=== PATIENT | male | born 1940 | race Caucasian/White ===

== ENCOUNTER → 2018-02-04 | Outpatient (CLI) | payer OTHER ==
[~2018-02-04] VITALS: Ht 172.7 cm; Wt 91.2 kg
[~2018-02-04] MED LIST: ADULT LOW DOSE81 MG PO; AMBEREN; APAP650 PO; B-12250 MCG PO; B-50 COMPLEX1 EAC1 PO; BACLOFEN 10MG T10 M1 PO; BACLOFEN 10MG T10 MG PO; CALCIUM; CARVEDILOL6.25 MG PO; CLONAZEPAM PO; COENZYME Q10100 M2 PO; COLACE100 MG PO; CRESTOR10 MG PO; CYCLOBENZAPRINE10 MG; CYCLOBENZAPRINE10 MG PO; DICLOFENAC SODI75 MG PO; FENTANYL PA12 MCG/H1 TP; FENTANYL PA12 MCG/HR TP; FENTANYL PA25 MCG/HR TP; FISH OIL 1,0001 EAC5 PO; FLOMAX0.4 MG PO; GLUCOSAMINE &1 EACH PO; GLYCOLAX POWDER17 G1 PO; HAIR, SKIN & N1 EAC1 PO; HYDROCODON-ACE1 EAC7 PO; HYDROCODONE-APA1 TA1 PO; LACTULOSE10 GM/152 PO; LIORESAL 10 MG10 MG PO; LIPITOR 20 MG T20 M1 PO; LYRICA 75 MG CA75 MG PO; MELOXICAM7.5 MG PO; MULTI VITAMIN1 EACH PO; MULTI-DAY VITA1 EACH PO; NEURONTIN 300300 M1 PO; OXYCODONE HCL5 M1 PO; PANTOPRAZOLE SO40 M1 PO; REQUIP 0.25 M0.25 MG PO; ROVIN-CF OF TA1 EACH PO; ROXICODONE5 M1 PO; ROXICODONE5 M2 PO; ROXICODONE5 MG PO; SIMVASTATIN40 MG PO; TOPROL XL25 MG PO; TYLENOL PM EX-1 EACH PO; VIACTIV SOFT C1 EACH PO; VIACTIV TABLET1 EAC2 PO; VISTARIL 25 MG25 M1 PO; VITAMIN B-12500 MC3 PO; VITAMIN B-12500 MCG PO; XARELTO10 MG PO
--- NOTE | ~2018-02-04 | HPC ---
[facility] [place] [address] PAIN MANAGEMENT CONSULTATION Name: ANJELICA LINDO [facility] #: [facility] [id number] Admission: 02/04/18 Attend Phys: Ramo Alvarado DO Discharge: Date of : 41 Report #: [id number] THIS REPORT FOR: //name// CC: Ramo Alvarez DATE OF SERVICE: 02/04/2018 CHIEF COMPLAINT: Left hip pain. HISTORY OF PRESENT ILLNESS: As you know, the patient is a very pleasant 77-year-old male who was followed by [facility] for an extended period of time for lumbar radiculopathy and right hip osteoarthritis pain. The patient has undergone total right hip arthroplasty with significant pain improvement on the right. Unfortunately, his left hip has begun to progressively worsen. He indicates pain with ambulating and pain with weightbearing, no pain is noted in the seated and lying position. His symptoms correlate to left hip with groin involvement. No radiation of symptoms in the dermatomal distribution. He returns today per the request of his primary care physician to undergo intra-articular left hip injection in hopes of improving pain. He does not have any formalized imaging of this left hip today. He denies injury or trauma to the left hip, but has noted exacerbation of symptoms since his right total hip arthroplasty. ALLERGIES: No known drug allergies. CURRENT MEDICATIONS: Aspirin, vitamin B complex, Coenzyme Q10, multivitamin, atorvastatin, calcium carbonate, cyanocobalamin, Tylenol Extra Strength. SOCIAL HISTORY: The patient denies tobacco, alcohol, IV or illicit drug use. He is unaccompanied today. IMAGING: No new imaging available. PQRS: The patient has osteoarthritis of the bilateral shoulders, bilateral elbows, bilateral hips, bilateral knees and lower back. No rheumatoid arthritis. He is placing pain intensity 6/10. He is not a fall risk, has not had a fall in the last 3 months. He is not on blood thinners. He is not treated for hypertension. He has been on opioids for an extended period of time, but is at a low risk. He his pain impact score 31/70 indicating moderate interference. PHYSICAL EXAMINATION: VITAL SIGNS: Blood pressure 151/71, pulse of 59, respiratory rate 14 and unlabored. The patient is 95% on room air. Height 5 feet 8 inches tall, weight [facility] [address] [address] PAIN MANAGEMENT CONSULTATION Name: ANJELICA LINDO Room #: REG [facility]#: [id number] Admission: 02/04/18 Attend Phys: Ramo Alvarado DO Discharge: Date of : 41 Report #: [id number] 201 pounds, BMI calculated at 30.6. GENERAL: Well-developed, well-nourished, well-hydrated 77-year-old male appearing stated age. Pain is rated today at approximately 6/10. HEENT: Normocephalic, atraumatic. Pupils equal, round, reactive to light. EXTREMITIES: Show no clubbing, no cyanosis, no edema. MUSCULOSKELETAL: Angelique's test positive left, negative right. There is limited range of motion of the left hip due to pain. Standing from seated position exacerbates symptoms. He is intact to light touch from L1 through S2 dermatomes. ASSESSMENT: 1. Left hip pain. 2. Left hip osteoarthritis. 3. Chronic intractable pain. PLAN: 1. The patient returns today in followup visit indicating improvement in his low back symptoms as well as right hip pain. Hip pain has been resolved with a total hip arthroplasty. The patient reports increasing left hip pain that has been present since his right hip was completed. I believe he is suffering from similar osteoarthritic changes that he had seen in his right hip, but has noted an exacerbation of symptoms due to weight distribution changes after he underwent his right total hip arthroplasty. There has been no new imaging of his left hip, but his symptoms do correlate with left hip pathology, worsening with standing and weightbearing as well as walking long distances, improves with sitting down and lying down. He also reports pain radiating to the groin and anterior thigh, but not in the dermatomal distribution. This correlates with left hip pathology, likely due to osteoarthritis. We discussed treatment options as following 2. We discussed physical therapy, stretching exercise, core strengthening and weight loss as treatment option. We discussed initiation of nonsteroidal anti-inflammatories to help with pain control. We discussed intraarticular hip injections and ultimately hip revision surgically. After reviewing risks and benefits of all proposed treatment options, the patient chose to begin with an intraarticular hip injection. We have advised the patient of the risks and benefits of intraarticular hip injections. These risks include but are not necessarily limited to bleeding, bruising, infection, worsening of pain, no relief of pain, also risk of temporary or permanent muscle weakness, temporary or permanent nerve damage, possible joint destruction and . The patient states he understood and wished to proceed. 3. No medication changes made at today's visit. The patient will continue current medical therapy as prior prescribed. [address] [address] PAIN MANAGEMENT CONSULTATION Name: ANJELICA LINDO Room #: REG [facility]#: [id number] Admission: 02/04/18 Attend Phys: Ramo Alvarado DO Discharge: Date of : 41 Report #: [id number] 4. We will see the patient back in followup visit in approximately one month. At that time, review the efficacy of today's left intraarticular hip injection and determine if next in the series might be necessary. PROCEDURE NOTE DESCRIPTION OF PROCEDURE: Left intra-articular hip injection under fluoroscopic guidance. After obtaining written consent, the patient was taken back to fluoroscopy suite, placed in a supine position. The image intensifier (C-ARM) was brought into position over the left hip and AP imaging was obtained. The area overlying the injection site was prepped in an aseptic fashion. A sterile marker was used to mattie the injection site and a 27-gauge 1-1/4 inch needle was then used to anesthetize skin and subcutaneous tissue with 3 mL of 1% lidocaine. A 22-gauge 3-1/2-inch spinal needle with bent tip was advanced towards the left hip under fluoroscopic guidance. The needle was advanced until reaching the proximal head of the left femur. The needle was retracted approximately 1 mm and aspiration noted to be negative for heme. After negative aspiration for heme, 0.5 mL of Omnipaque was injected demonstrating an excellent left hip arthrogram. After negative aspiration for heme, 4 mL of a solution containing 1 mL 40 mg per mL, 40 mg total triamcinolone and 3 mL of bupivacaine 0.5% was injected slowly. Needle retracted residential, flushed with 1 mL of 1% lidocaine and removed. Sterile bandage was placed over injection site. The patient was able to move all 4 extremities after procedure purposefully. The patient tolerated the procedure well, carefully escorted to recovery room in stable condition. No apparent complications. After meeting our discharge criteria, the patient discharged home. <ELECTRONICALLY SIGNED> By: Ramo Alvarado DO 02/05/18 0909 [id number] Ramo Alvarado DO /nt
[2018-02-04 10:57] VITALS: BP 115/71
== END ==
LOC: PAIN 07:11
DX: M16.12 Unilateral primary osteoarthritis, left hip (principal); G89.29 Other chronic pain; M54.16 Radiculopathy, lumbar region; M19.012 Primary osteoarthritis, left shoulder; M19.011 Primary osteoarthritis, right shoulder; M19.022 Primary osteoarthritis, left elbow; M19.021 Primary osteoarthritis, right elbow; M17.0 Bilateral primary osteoarthritis of knee; I12.9 Hypertensive chronic kidney disease with stage 1 through stage 4 chronic kidney disease, or unspecified chronic kidney disease; N18.9 Chronic kidney disease, unspecified; Z87.891 Personal history of nicotine dependence; Z98.890 Other specified postprocedural states; Z79.82 Long term (current) use of aspirin; Z79.899 Other long term (current) drug therapy; Z79.891 Long term (current) use of opiate analgesic; Z95.1 Presence of aortocoronary bypass graft

== ENCOUNTER → 2018-03-04 | Outpatient (CLI) | payer OTHER ==
[~2018-03-04] VITALS: Ht 172.7 cm; Wt 91.6 kg
--- NOTE | ~2018-03-04 | HPC ---
[facility] [address] [place] [address] PAIN MANAGEMENT CONSULTATION Name: ANJELICA LINDO Room #: REG Hanane MoralesVanessaJavierVanessa#: [id number] Admission: 03/04/18 Attend Phys: Ramo Alvarado DO Discharge: Date of : 41 Report #: [id number] THIS REPORT FOR: //name// CC: Ramo Drummond MD DATE OF SERVICE: 03/04/2018 REFERRING PHYSICIAN: William Drummond MD CHIEF COMPLAINT: Left hip pain. HISTORY OF PRESENT ILLNESS: As you know, the patient is a very pleasant 77-year-old male followed by [facility] for an extended period of time for lumbar radiculopathy and hip osteoarthritis. He has undergone total right hip arthroplasty with significant pain improvement on the right. Unfortunately, he continues to experience left hip pain for which he has undergone intra-articular hip injections with good efficacy. Most recent injection performed on 02/04/2018 provided near 100% improvement in overall pain. He has had a slow and progressive return of symptoms and he returns today to undergo next in the series of left intra-articular hip injections. The patient denies any new injury or trauma that may have led to symptom reoccurrence. The patient does relay information today that he is undergoing workup for potential prostate cancer. He has undergone biopsies of the prostate and is awaiting results. He is somewhat upset about this issue, but understands he must await the findings before moving forward with any treatment. He returns to undergo left intra-articular hip injection today. ALLERGIES: No known drug allergies. CURRENT MEDICATIONS: Aspirin, vitamin B complex, Coenzyme Q10, multivitamin, atorvastatin, calcium carbonate, cyanocobalamin, Tylenol Extra Strength. SOCIAL HISTORY: The patient denies tobacco, alcohol, IV or illicit drug use. He is accompanied by his who is present in room today. IMAGING: No new imaging available. PQRS: The patient has osteoarthritis in bilateral shoulders, bilateral elbows, bilateral hips, bilateral knees and low back. No rheumatoid arthritis. He is placing pain intensity up to 2/10. He is not a fall risk, has not had a fall in the last 3 months. He is not on blood thinners. He is not treated for hypertension. He has been on opioids for an extended period of time, but has an extremely low risk of opioid abuse. Pain impact score 31/70, moderate interference of daily activities secondary to pain. [address] [address] PAIN MANAGEMENT CONSULTATION Name: ANJELICA LINDO Reinaldo [facility] [id number] Admission: 03/04/18 Attend Phys: Ramo Alvarado DO Discharge: Date of : 41 Report #: [id number] PHYSICAL EXAMINATION: VITAL SIGNS: Blood pressure 119/68, pulse 84, respiratory rate 16 and unlabored. The patient is 96% on room air. Height 5 feet 8 inches tall, weight 202 pounds, BMI calculated 30.7. GENERAL: Well-developed, well-nourished, well-hydrated, 77-year-old male. He appears stated age, placing current pain score up to 2/10. HEENT: Normocephalic, atraumatic. Pupils equal, round, reactive to light. Speech remains fluent. EXTREMITIES: Show no clubbing, no cyanosis, no edema. MUSCULOSKELETAL: Angelique's test positive left, negative right. Limited range of motion of the left hip due to pain. Standing from seated position once again exacerbate symptoms. He has a mildly antalgic left gait. ASSESSMENT: 1. Left hip pain. 2. Left hip osteoarthritis. 3. Chronic intractable pain. PLAN: 1. The patient has returned today in followup visit to undergo next in the series of left intra-articular hip injections. He did very well with previous injection reporting near 100% improvement in overall pain. He returns today with pain level up to 2/10, requesting to undergo next in the series of left intra-articular hip injections. He has done well with previous injections. I recommend that he continue to use these for conservative treatment. If this is ineffective at providing long-term benefit, possible surgical evaluation might be necessary. The patient is amenable and does wish to undergo the procedure. He has been advised the risks and benefits, states he understood and wished to proceed. 2. No medication changes made at today's visit. The patient will continue current medical therapy as previously prescribed. 3. I had a long discussion today with the patient about recent prostate biopsies. I advised the patient to await the findings before becoming concerned about the potential diagnosis. Many times prostates are evaluated and the findings are benign. I recommend we await the findings before making any decision in treatment. The patient was advised that he can contact our clinic if he wishes to discuss this further. 4. We will see the patient back in followup visit on an as needed basis. He is planning to leave to winter in the [facility] area. We wish him a good trip, will be available to see him back when necessary. PROCEDURE NOTE DESCRIPTION OF PROCEDURE: Left intra-articular hip injection under fluoroscopic guidance. [facility] [address] [place] [address] PAIN MANAGEMENT CONSULTATION Name: ANJELICA LINDO Room #: REG LEONELA Flores#: [id number] Admission: 03/04/18 Attend Phys: Ramo Alvarado DO Discharge: Date of : 41 Report #: [id number] After obtaining written consent, the patient was taken back to fluoroscopy suite, placed in a supine position. The image intensifier (C-arm) was brought into position over the left hip and AP imaging was obtained. The area overlying the injection site was then prepped and draped in aseptic fashion. A sterile marker was used to mattie the injection site and a 27-gauge 1-1/4 inch needle was then used to anesthetize skin and subcutaneous tissue with 2 mL of 1% lidocaine. A 22-gauge 3-1/2 inch spinal needle with bent tip was advanced towards the left hip under fluoroscopic guidance. Needle was advanced until reaching the proximal head of the left femur. Needle was then retracted approximately 1 mm and aspiration noted to be negative for heme. After negative aspiration for heme, 0.5 mL of Omnipaque was injected demonstrating an excellent left hip arthrogram. After negative aspiration for heme, 4 mL of a solution containing 1 mL 40 mg per mL, 40 mg total triamcinolone, 3 mL bupivacaine 0.5% injected slowly. Needle retracted shelter, flushed with 1 mL of 1% lidocaine and removed. Sterile bandage was placed over injection site. The patient was able to move all 4 extremities after procedure purposefully. The patient tolerated the procedure well, carefully escorted to the recovery room in stable condition. No apparent complications. After meeting discharge criteria, the patient was discharged home. <ELECTRONICALLY SIGNED> By: Ramo Alvarado DO 03/05/18 0814 1304 1941 Ramo Alvarado DO /nt
[2018-03-04 10:07] VITALS: BP 119/68
== END | disposition home or self-care (01) ==
LOC: PAIN 08:41
DX: M16.0 Bilateral primary osteoarthritis of hip (principal); M17.0 Bilateral primary osteoarthritis of knee; M19.012 Primary osteoarthritis, left shoulder; M19.011 Primary osteoarthritis, right shoulder; M19.022 Primary osteoarthritis, left elbow; M19.021 Primary osteoarthritis, right elbow; G89.29 Other chronic pain; I10 Essential (primary) hypertension; N18.9 Chronic kidney disease, unspecified; Z79.82 Long term (current) use of aspirin; Z79.899 Other long term (current) drug therapy; Z79.891 Long term (current) use of opiate analgesic; Z87.891 Personal history of nicotine dependence; Z95.1 Presence of aortocoronary bypass graft

== ENCOUNTER → 2020-10-25 | Outpatient (CLI) | payer OTHER ==
[~2020-10-25] VITALS: Ht 172.7 cm; Wt 91.5 kg
[~2020-10-25] MED LIST changes: +NAPROSYN500 MG PO; +PROTONIX40 M2 PO
--- NOTE | ~2020-10-25 | HPC ---
[facility] [place] [address] PAIN MANAGEMENT CONSULTATION Name: ANJELICA LINDO Room #: REG [facility] HéctorVanessa#: [id number] Admission: 10/25/20 Attend Phys: Ramo Alvarado DO Discharge: Date of : 41 Report #: [id number] THIS REPORT FOR: cc: LARY LEE Physician not on staff Ramo Alvarado DO ~ cc: iWlliam Drummond MD DATE OF SERVICE: 10/25/2020 REFERRING PHYSICIAN: Dr. William Drummond. CHIEF COMPLAINT: Low back pain, left side only. HISTORY OF PRESENT ILLNESS: As you know, the patient is a very pleasant 80-year-old male who has been referred back to our clinic by his primary care physician to discuss treatment options for axial left-sided back pain. The patient states his pain has progressively worsened. He was last seen in consultation in our clinic on 03/04/2018 where he underwent a left intra-articular hip injection with improvement in symptoms. He continues to experience axial back pain on the left side directly over the facet joint at L4-L5 and L5-S1. He has trialled conservative treatment options, but has not noted much in the way of improvement. He discussed his case further with his primary care physician who referred the patient on to our clinic to discuss interventional treatment options. He has returned today in followup visit with pain level of 2/10, located in symptoms over the left low back. He is able to localize in symptoms with specific activities such as rotation and lateral flexion. He has denied any specific injury or trauma that may have led to his axial back pain issues. ALLERGIES: No known drug allergies. CURRENT MEDICATIONS: ____ 0.4 mg once a day, pantoprazole 40 mg per day, Tylenol Extra strength 1 tablet per day, cyanocobalamin 500 mcg per day, calcium carbonate 1 tablet per day, atorvastatin 20 mg per day, multivitamin one tablet per day, Coenzyme Q 100 mg once a day, vitamin B complex 1 tablet per day, aspirin 81 mg per day. SOCIAL HISTORY: The patient denies tobacco, alcohol or IV or illicit drug use. He is retired, retired years ago, accompanied by his , present in room today. IMAGING: No new imaging is available. PQRS: The patient has known arthritic changes of the bilateral shoulders, bilateral elbows, bilateral hips, bilateral knees and lumbar spine. No rheumatoid arthritis. He is placing current pain score of 0/10. He is not a [facility] [address] [address] PAIN MANAGEMENT CONSULTATION Name: ANJELICA LINDO Room #: REG [facility]#: [id number] Admission: 10/25/20 Attend Phys: Ramo Alvarado DO Discharge: Date of : 41 Report #: [id number] fall risk, has not had a fall in last 3 months. He is not on blood thinners nor treated for hypertension. He is on no opioid medications, has a low opioid addiction potential. Pain impact is 31/70, moderate interference of daily activities secondary to pain. PHYSICAL EXAMINATION: VITAL SIGNS: Blood pressure 122/70, pulse 58, respiratory rate 16 and unlabored. The patient is 98% on room air. Height 5 feet 8 inches tall, weight 201.8 pounds, BMI calculated 30.7. GENERAL: Well-developed, well-nourished, well-hydrated 80-year-old male appearing stated age, pain is rated today 2/10. HEENT: Normocephalic and atraumatic. Pupils are round and responsive. Speech is fluent. He is wearing a mask in compliance with COVID-19 regulations. EXTREMITIES: Show no clubbing, no cyanosis. No appreciable edema. MUSCULOSKELETAL: The patient has palpatory tenderness over the lower lumbar spine. No spinous process tenderness. All pain is located on the left side. There is no right-sided discomfort. Seated straight leg raising negative. Supine straight leg raising negative. Fabere's test is positive for left intrinsic hip pathology. Pain is elicited with standing from a seated position. Muscle bulk and tone is symmetrical in comparing lower extremities. He is intact to light touch from L1 through S2 dermatomes. Straight leg raising both in seated and supine position are negative. He is displaying equal and symmetrical deep tendon reflexes at patella and Achilles. Lumbar provocation testing is met with increasing axial back pain directly over the facet joints at L4-L5 and L5-S1 on the left. ASSESSMENT: 1. 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 2. Facet arthropathy, lumbar spine. 3. Lumbar degeneration. 4. Chronic left hip pain due to osteoarthritis. 5. Chronic intractable pain. PLAN: 1. The patient has returned today in followup visit with continued axial back pain located over the left lower lumbar area. He has negative findings for SI joint dysfunction, but has significant pain with propagating testing of the L4-L5 and L5-S1 facet joints on the left. He does have findings concerning of intrinsic hip pathology and I do feel that ultimately he would have to look towards a total hip arthroplasty, but at this point, his main pain generator appears to be related to the facet joints of the lower lumbar spine. We discussed with the patient the treatment options following was discussed with the patient today. We discussed physical therapy, stretching exercises and core strengthening as a treatment approach. We discussed medication management, adding a consistent [facility] [place] [address] PAIN MANAGEMENT CONSULTATION Name: ANJELICA LINDO Room #: REG LEONELA Flores#: [id number] Admission: 10/25/20 Attend Phys: Ramo Alvarado DO Discharge: Date of : 41 Report #: [id number] nonsteroidal anti-inflammatory to be taken on a b.i.d. basis. We discussed diagnostic intra-articular facet injections at L4-L5 and L5-S1 on the left. We also discussed medial branch nerve blocks, radiofrequency lesioning as a treatment course and ultimately we discussed surgical options with the patient. After reviewing the risks and benefits of all proposed treatment options, the patient chose to begin with medication management and to obtain any authorizations necessary for the patient to undergo a left L4-L5, L5-S1 diagnostic intra-articular facet injections. The patient will be started on naproxen sodium 500 mg dose 1 tablet p.o. b.i.d. given the patient #60 tablets to be taken with meals. He will watch for side effects of dyspepsia, worsening of blood pressure, lower extremity edema. If he notes any of those side effects, he is to discontinue the medication immediately. The prescription was sent via [facility] local pharmacy with 2 refills essentially 3 months' worth of medication. 2. We will begin process of authorization for the patient to undergo diagnostic left L4-L5, L5-S1 intraarticular facet injections. We are hopeful that we can have those authorization was done in the next 4-7 days. We will have the patient tentatively establish an appointment for next week to undergo the procedure. 3. We wish to thank the referring physician, Dr. William Drummond for the re-referral of the patient to our clinic. We will keep you apprised of response to treatment. Again, we wish to thank you for the opportunity to see the patient in consultation. By: 0700 [id number] Ramo Alvarado DO /nt
[2020-10-25 09:34] VITALS: BP 122/70
--- NOTE | 2020-10-25 09:54 | NUR ---
Pain Clinic Assessment: 1. History of Osteoarthritis: Left Lower Extremity Left Upper Extremity Right Lower Extremity Right Upper Extremity History of Rheumatoid Arthritis: Not Applicable 2. Height: 5 ft. 8 in. 172.7 cm. Weight: 201.8 lb. oz. 91.536 kg. Patient's BMI: 30.7 3. Vital Signs: BP: 122/70 Pulse: 58 Resp: 16 Temp: 02 Sat: 98 ECG Mon: 4. Pain Intensity: 2 5. Fall Risk: Dizziness: N Needs help standing or walking: N Fallen in the last 3 months: N Fall risk comments: 6. Patient on Blood Thinner: None 7. History of Hypertension: N 8. Opioid Therapy greater than 6 weeks: Y Opiate Contract Signed: 10/26/15 9. Risk Assessment Tool Provided: 0 LOW RISK 10. Functional Assessment Tool: 31 11. Recreational Drug Use: Never Drug Type: Tobacco Use: Former Smoker Tobacco Type: Amount or Packs/day: How Many Years: Alcohol Use: No Frequency: Quant:
== END ==
LOC: PAIN 07:06
PROVIDERS: ATTEND Anesthesiology Pain Medicine
DX: M47.27 Other spondylosis with radiculopathy, lumbosacral region (principal); M51.36 Other intervertebral disc degeneration, lumbar region; M25.552 Pain in left hip; G89.4 Chronic pain syndrome; Z79.891 Long term (current) use of opiate analgesic; Z79.899 Other long term (current) drug therapy

== ENCOUNTER → 2021-02-28 | Outpatient (CLI) | payer OTHER ==
[~2021-02-28] VITALS: Ht 170.2 cm; Wt 91.2 kg
[2021-02-28 13:42] VITALS: BP 134/68
--- NOTE | 2021-02-28 13:48 | NUR ---
Pain Clinic Assessment: 1. History of Osteoarthritis: Left Lower Extremity Left Upper Extremity Right Lower Extremity Right Upper Extremity History of Rheumatoid Arthritis: Not Applicable 2. Height: 5 ft. 7 in. 170.2 cm. Weight: 201.0 lb. oz. 91.173 kg. Patient's BMI: 31.5 3. Vital Signs: BP: 134/68 Pulse: 68 Resp: 16 Temp: 02 Sat: 94 ECG Mon: 4. Pain Intensity: 6 5. Fall Risk: Dizziness: N Needs help standing or walking: N Fallen in the last 3 months: N Fall risk comments: 6. Patient on Blood Thinner: None 7. History of Hypertension: N 8. Opioid Therapy greater than 6 weeks: Y Opiate Contract Signed: 10/26/15 9. Risk Assessment Tool Provided: 0 LOW RISK 10. Functional Assessment Tool: 11. Recreational Drug Use: Never Drug Type: Tobacco Use: Former Smoker Tobacco Type: Amount or Packs/day: How Many Years: Alcohol Use: No Frequency: Quant:
--- NOTE | 2021-03-07 08:44 | HPC ---
[facility] [place] [address] PAIN MANAGEMENT CONSULTATION Name: ANJELICA LINDO Room #: REG [facility] [id number] Admission: 02/28/21 Attend Phys: Ramo Alvarado DO Discharge: Date of : 42 Report #: [id number] THIS REPORT FOR: cc: LARY LEE Physician not on staff Ramo Alvarado DO ~ DATE OF SERVICE: 02/28/2021 REFERRING PHYSICIAN: Dr. Drummond. CHIEF COMPLAINT: Bilateral hip pain. HISTORY OF PRESENT ILLNESS: As you know, the patient is a very pleasant 80-year-old male returning in followup visit with bilateral hip pain. He states he can barely ambulate at times due to increasing hip symptoms. As you are aware, the patient has undergone right total hip arthroplasty, but ultimately needs to undergo left total hip arthroplasty to address his ongoing issues. He returns today in followup visit, requesting intraarticular hip injections to be provided today. The patient has done very well with hip injections in the past, most recent gave 80% improvement in overall pain until just recently. He returns today requesting adjustments are to undergo interventional treatments. The patient denies injury, trauma or any changes in medication management that would preclude him from undergoing an injection today. ALLERGIES: No known drug allergies. CURRENT MEDICATIONS: See chart. SOCIAL HISTORY: The patient denies tobacco, alcohol or IV or illicit drug use. He is retired, retired years ago, accompanied by his . IMAGING: No imaging available. PQRS: The patient has known arthritic changes of bilateral shoulders, bilateral elbows, bilateral hips, status post right total hip arthroplasty, bilateral knees and lumbar spine. No rheumatoid arthritis. Pain intensity today is rated at around 6/10. He is not a fall risk, has not had a fall in last 3 months. He is not on blood thinners nor treated for hypertension. He is not on any opioid medications, has a low opioid addiction potential. Pain impact is reported at 16/70, mild interference of daily activities secondary to pain. PHYSICAL EXAMINATION: VITAL SIGNS: Blood pressure 134/68, pulse 68, respiratory rate 16 and unlabored. The patient is 94% on room air. Height 5 feet 7 inches tall, weight 201 pounds, BMI calculated 31.5. GENERAL: Well-developed, well-nourished, well-hydrated 80-year-old male appearing stated age. Pain is rated today 6/10. [address] [address] PAIN MANAGEMENT CONSULTATION Name: ANJELICA LINDO Room #: REG CLI [facility]#: [id number] Admission: 02/28/21 Attend Phys: Ramo Alvarado DO Discharge: Date of : 42 Report #: [id number] HEENT: Normocephalic, atraumatic. Pupils equal, round and responsive. He is wearing a mask in compliance with COVID-19 regulations in hospital policies. EXTREMITIES: Show no clubbing, no cyanosis, no edema. MUSCULOSKELETAL: Angelique's test is positive on the left for intrinsic hip pathology. Pain is elicited with movement of the right hip as well, but to a much lesser degree. Seated straight leg raising negative. Supine straight leg raising negative. Modified Gaenslen's positive for axial low back pain. ASSESSMENT: 1. Chronic left hip pain due to osteoarthritis. 2. Chronic right hip pain, status post total hip arthroplasty. 3. 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 4. Facet arthropathy of lumbar spine. 5. Chronic intractable pain. PLAN: 1. The patient returns today in followup visit to undergo intra-articular hip injection on the left and to address bursa pain on the right. The patient has been advised risks and benefits of the procedure proposed which is an intra-articular left hip injection and a right bursa injection under fluoroscopic guidance. The patient has been advised the risks include but are not necessarily limited to bleeding, bruising, infection, worsening pain, no relief of pain also risk of temporary or permanent muscle weakness, temporary or permanent nerve damage, possible paralysis, joint destruction and . The patient states understood and wished to proceed. 2. No medication changes made at today's visit. We recommend the patient continue current medical therapy as prior prescribed. 3. Plan to see the patient's back in followup visit on an as needed basis for next in the series of injections. PROCEDURE NOTE DESCRIPTION OF PROCEDURE: Left intraarticular hip injection under fluoroscopic guidance and right greater trochanter bursa injection. After obtaining written consent, the patient was taken back to fluoroscopy suite, placed in prone position. Image intensifier (C-arm was then brought into position over the left hip and AP imaging was obtained. The area overlying the injection site was then prepped and draped in aseptic fashion. A sterile marker was used to mattie the injection site with a 27-gauge 1-1/4-inch needle was then used to anesthetize skin and subcutaneous tissue with 3 mL 1% lidocaine. A 22-gauge 3-1/2 inch spinal needle with bent tip was advanced towards the left hip under fluoroscopic guidance. Needle was advanced until reaching the proximal head of the left femur. Needle was retracted approximately 1 mm and aspiration noted to be negative for heme. After negative aspiration for heme, [address] [address] PAIN MANAGEMENT CONSULTATION Name: ANJELICA LINDO Room #: REG [facility]#: [id number] Admission: 02/28/21 Attend Phys: Ramo Alvarado DO Discharge: Date of : 42 Report #: [id number] 0.5 mL of Omnipaque injected demonstrating excellent left hip arthrogram. After negative aspiration for heme, 4 mL solution containing 1 mL 40 mg per mL, 40 mg total triamcinolone along with 3 mL of bupivacaine 0.5% was injected slowly. Needle retracted senior care flushed with 1 mL of 1% lidocaine and removed. Sterile bandage placed over injection site. No new motor deficits present in the left lower extremity following procedure. Our attention was then directed to the right greater trochanteric bursa area. The area was palpated and marked with a sterile marker. The area was then prepped and draped in aseptic fashion using chlorhexidine. A 27-gauge 1-1/4-inch needle was then used to anesthetize skin and subcutaneous tissue with 2 mL of 1% preservative-free lidocaine. A 22-gauge 3-1/2 inch spinal needle was advanced towards the greater trochanter on the right side. Needle was advanced until reaching the greater trochanter, then retracted approximately 1 mm. After negative aspiration for heme, 0.2 mL of Omnipaque was injected, demonstrating an excellent bursal gram. After negative aspiration for heme, 3 mL solution containing 1 mL 40 mg per mL, 40 mg total triamcinolone along with 2 mL of bupivacaine 0.5% injected slowly. Needle retracted senior care flushed with 1 mL of 1% lidocaine and removed. Sterile bandage placed over injection site. There were no new motor deficits present on the right side after the procedure. The patient tolerated the procedure well, carefully escorted to recovery room in stable condition. No apparent complications. After meeting discharge criteria, the patient discharged home. <ELECTRONICALLY SIGNED> By: Ramo Alvarado DO 03/07/21 [id number] Ramo Alvarado DO /nt
== END | disposition home or self-care (01) ==
LOC: PAIN 13:31
PROVIDERS: ATTEND Anesthesiology Pain Medicine
DX: M25.551 Pain in right hip (principal); M25.552 Pain in left hip; M16.0 Bilateral primary osteoarthritis of hip; M47.816 Spondylosis without myelopathy or radiculopathy, lumbar region; M47.817 Spondylosis without myelopathy or radiculopathy, lumbosacral region; M19.90 Unspecified osteoarthritis, unspecified site; G89.29 Other chronic pain; N18.9 Chronic kidney disease, unspecified; Z98.890 Other specified postprocedural states; Z79.899 Other long term (current) drug therapy; Z95.1 Presence of aortocoronary bypass graft; Z96.641 Presence of right artificial hip joint; Z87.891 Personal history of nicotine dependence